=== PATIENT | male | born 1945 | race Two or more races ===

== ENCOUNTER 2018-06-08 08:09 | Outpatient (CLI) | payer OTHER | END 2018-06-08 08:19 | disposition home or self-care (01) | LOC: TOM 08:09 | DX: R31.0 Gross hematuria (principal); N20.0 Calculus of kidney ==

== ENCOUNTER 2018-06-19 07:21 | Outpatient (CLI) | payer OTHER | END 2018-06-19 07:30 | disposition home or self-care (01) | LOC: TOM 07:21 | DX: R31.0 Gross hematuria (principal); N28.1 Cyst of kidney, acquired; N20.0 Calculus of kidney | CPT/HCPCS: 74177; Q9965 ==

== ENCOUNTER 2020-02-12 06:16 | Outpatient (CLI) | payer OTHER | END 2020-02-12 06:40 | disposition home or self-care (01) | LOC: LAB 06:16 | PROVIDERS: ATTEND Urology | DX: N20.1 Calculus of ureter (principal) ==

== ENCOUNTER 2022-03-12 06:29 | Outpatient (CLI) | payer OTHER | END 2022-03-12 06:30 | disposition home or self-care (01) | LOC: LAB 06:29 | PROVIDERS: ATTEND Urology | DX: N30.00 Acute cystitis without hematuria (principal); N20.1 Calculus of ureter ==